=== PATIENT | male | born 1990 | race African-American/Black ===

== ENCOUNTER 2017-04-23 03:49 | Emergency (ER) | payer MEDICAID ==
[~2017-04-23] VITALS: Ht 170.2 cm; Wt 73.0 kg
--- NOTE | 2017-04-23 07:56 | REP ---
Scrotal ultrasound: The testes are normal size. Right testis measures 3.7 x 1.7 x 2.4 cm. Left testis measures 4.5 x 2 bone by 2.8 cm. The right and left epididymal heads are unremarkable. There are no testicular masses. There is vascular flow in both testes with the Doppler resistive index of intraparenchymal arteries on the right measuring 0.39, left 0.39. There is a large right inguinal hernia containing omental fat but no bowel. The hernia is not reducible with transducer pressure. There is bilateral testicular microlithiasis. Therefore, annual testicular ultrasound surveillance might be considered to evaluate for testicular masses. No masses are identified today. There is a tunica again 2 mm calcification (scrotal rylan) of no clinical significance. Impression: There is vascular flow in both testes. The right testis is slightly smaller than the left. The epididymi are unremarkable. There is bilateral testicular microlithiasis, therefore the patient should be considered for annual scrotal ultrasound surveillance. No testicular masses are identified on the study today. There is a large right inguinal hernia containing omental fat but no bowel. The hernia is not reducible with transducer pressure. Signed by Stanley Sepulveda MD 04/23/2017 07:48 A
[2017-04-23 08:03] VITALS: BP 132/84
== END 2017-04-23 08:04 | disposition home or self-care (01) ==
LOC: M ED 03:49
DX: K40.90 Unilateral inguinal hernia, without obstruction or gangrene, not specified as recurrent (principal); N50.89 Other specified disorders of the male genital organs; F17.210 Nicotine dependence, cigarettes, uncomplicated

== ENCOUNTER 2017-10-29 16:39 | Emergency (ER) | payer SELFPAY, MEDICAID | END 2017-10-29 20:48 | disposition left against medical advice (07) | LOC: M ED 16:39 | DX: Z53.21 Procedure and treatment not carried out due to patient leaving prior to being seen by health care provider (principal) ==

== ENCOUNTER 2017-11-04 16:16 | Emergency (ER) | payer SELFPAY, MEDICAID, OTHER ==
[2017-11-04] MEDS: POLYTRIM OPTH DROPS 10ML OU (18:10)
== END 2017-11-04 18:10 | disposition home or self-care (01) ==
LOC: M ED 16:16
DX: H10.023 Other mucopurulent conjunctivitis, bilateral (principal); J45.909 Unspecified asthma, uncomplicated; F17.210 Nicotine dependence, cigarettes, uncomplicated
CPT/HCPCS: 99282